=== PATIENT | male | born 1945 | race Caucasian/White ===

== ENCOUNTER → 2017-01-29 | Outpatient (CLI) | payer MEDICARE, BC ==
[2016-01-26 09:15] VITALS: BP 128/68
[~2017-01-29] MED LIST: ADVAIR DISKUS1 DS2 IH; ASPIR LOW81 MG PO; BENADRYL ALLERG25 M2 PO; COMBIVENT RESPI1 SPR IH; FLONASE ALLERG9.9 ML NS; IBU400 MG PO; MULTIVITAMIN1 SGL PO; VITAMIN D50000 UNIT PO; ZANTAC300 MG PO; ZYRTEC ALLERGY10 MG PO
== END ==
LOC: LAB 07:28
DX: I25.10 Atherosclerotic heart disease of native coronary artery without angina pectoris (principal); C61 Malignant neoplasm of prostate; N52.03 Combined arterial insufficiency and corporo-venous occlusive erectile dysfunction; G62.89 Other specified polyneuropathies; E03.4 Atrophy of thyroid (acquired)

== ENCOUNTER → 2017-08-21 | Outpatient (CLI) | payer MEDICARE, BC ==
[2016-01-26 09:15] VITALS: BP 128/68
== END ==
LOC: RAD 06:57
DX: M47.26 Other spondylosis with radiculopathy, lumbar region (principal); M51.16 Intervertebral disc disorders with radiculopathy, lumbar region; M54.89 Other dorsalgia; Z85.46 Personal history of malignant neoplasm of prostate

== ENCOUNTER → 2018-01-28 | Outpatient (CLI) | payer MEDICARE, BC ==
[2016-01-26 09:15] VITALS: BP 128/68
[2018-01-28 06:50] LABS: URINE WBC 0 /hpf (0-3)
[2018-01-28 07:30] LABS: HEMATOCRIT 40.9 % (42.0-52.0); HEMOGLOBIN 13.5 g/dL (13.5-18.0); MEAN CELL VOLUME 92 fl (78-100); MEAN CORPUSCULAR HEMOGLOBIN 30 pg (27-31); MEAN CORPUSCULAR HGB CONC 33 g/dL (33-37); MEAN PLATELET VOLUME 10.4 fl (7.4-10.4); PLATELET COUNT 243 K/mm3 (130-400); RED BLOOD COUNT 4.46 M/mm3 (4.20-5.60); RED CELL DISTRIBUTION WIDTH 13.7 % (11.5-14.5); WHITE BLOOD COUNT 6.1 K/mm3 (4.8-10.8)
[2018-01-28 08:06] LABS: ALBUMIN 4.1 g/dL (3.5-5.0); BUN/CREATININE RATIO 23.4 (6.0-26.0); CALCIUM 9.1 mg/dL (8.4-10.2); POTASSIUM 4.1 mmol/L (3.6-5.0); TOTAL BILIRUBIN 0.4 mg/dL (0.2-1.3); TOTAL PROTEIN 8.1 g/dL (6.3-8.2)
[2018-01-28 09:31] LABS: PH-URINE 6.5 (5.0 - 8.0); URINE APPEARANCE CLEAR; URINE BILIRUBIN NEGATIVE (NEGATIVE); URINE BLOOD NEGATIVE (NEGATIVE); URINE COLOR YELLOW; URINE GLUCOSE NEGATIVE (NEGATIVE); URINE KETONE NEGATIVE (NEGATIVE); URINE LEUKOCYTE ESTERASE NEGATIVE (NEGATIVE); URINE NITRATE NEGATIVE (NEGATIVE); URINE PROTEIN(semi-quant) NEGATIVE (NEGATIVE); URINE UROBILINOGEN NORMAL (NORMAL)
[2018-01-28 10:28] LABS: ERYTHROCYTE SEDIMENTATION RATE 7 mm/hr (0-20); LYMPHOCYTE 22 % (20-51); MONOCYTE 9 % (3-10); NEUTROPHILS 58 % (42-75)
[2018-01-28 22:20] LABS: TESTOSTERONE 548 ng/dL (221-716)
== END ==
LOC: LAB 06:37
PROVIDERS: Internal Medicine
DX: Z12.11 Encounter for screening for malignant neoplasm of colon (principal); C61 Malignant neoplasm of prostate; I25.10 Atherosclerotic heart disease of native coronary artery without angina pectoris; N52.03 Combined arterial insufficiency and corporo-venous occlusive erectile dysfunction; G62.89 Other specified polyneuropathies

== ENCOUNTER → 2018-01-31 | Outpatient (CLI) | payer MEDICARE, BC ==
[2016-01-26 09:15] VITALS: BP 128/68
== END ==
LOC: LAB 10:41
DX: Z12.11 Encounter for screening for malignant neoplasm of colon (principal); G62.89 Other specified polyneuropathies

== ENCOUNTER → 2018-02-07 | Outpatient (CLI) | payer MEDICARE, BC ==
[2016-01-26 09:15] VITALS: BP 128/68
== END ==
LOC: RAD 08:59
DX: M13.851 Other specified arthritis, right hip (principal); D89.2 Hypergammaglobulinemia, unspecified; C61 Malignant neoplasm of prostate

== ENCOUNTER → 2018-03-31 | Outpatient (CLI) | payer MEDICARE, BC ==
[~2018-03-31] VITALS: Ht 190.5 cm; Wt 100.0 kg
[~2018-03-31] MED LIST changes: +FLUTICASON0.05 MG/AC NS; +REVATIO20 MG PO
[2018-03-31 12:26] LABS: EOS # 0.4 (0.04-0.40); HEMATOCRIT 41.6 % (42.0-52.0); HEMOGLOBIN 14.1 g/dL (13.5-18.0); LYMPH# 1.8 (1.50-4.00); MEAN CELL VOLUME 91 fl (78-100); MEAN CORPUSCULAR HEMOGLOBIN 31 pg (27-31); MEAN CORPUSCULAR HGB CONC 34 g/dL (33-37); MONO # 0.6 (0.20-0.80); NEU # 3.4 (1.40-6.50); PLATELET COUNT 256 K/mm3 (130-400); RED BLOOD COUNT 4.56 M/mm3 (4.20-5.60); RED CELL DISTRIBUTION WIDTH 13.1 % (11.5-14.5); WHITE BLOOD COUNT 6.3 K/mm3 (4.8-10.8)
[2018-03-31 12:32] LABS: EOS % 6.2 % (0.0-4.0)
[2018-03-31 12:43] LABS: ALBUMIN 4.3 g/dL (3.5-5.0); CALCIUM 9.5 mg/dL (8.4-10.2); POTASSIUM 4.4 mmol/L (3.6-5.0); TOTAL BILIRUBIN 0.5 mg/dL (0.2-1.3); TOTAL PROTEIN 8.3 g/dL (6.3-8.2)
[2018-03-31 13:00] VITALS: BP 126/72
== END ==
LOC: RAD 12:09
PROVIDERS: Internal Medicine
DX: I49.3 Ventricular premature depolarization (principal); I25.10 Atherosclerotic heart disease of native coronary artery without angina pectoris

== ENCOUNTER → 2018-04-18 | Outpatient (CLI) | payer MEDICARE, BC ==
[2018-03-31 13:00] VITALS: BP 126/72
== END ==
LOC: CARDREHAB 07:41 → CARDLAB 09:54
DX: I25.10 Atherosclerotic heart disease of native coronary artery without angina pectoris (principal); I47.2 Ventricular tachycardia; R06.09 Other forms of dyspnea
CPT/HCPCS: A9500

== ENCOUNTER → 2018-05-12 | Outpatient (CLI) | payer MEDICARE, BC ==
[2018-03-31 13:00] VITALS: BP 126/72
== END ==
LOC: VAS 11:44
DX: I08.1 Rheumatic disorders of both mitral and tricuspid valves (principal); I49.3 Ventricular premature depolarization; R53.83 Other fatigue

== ENCOUNTER → 2018-06-11 | Outpatient (CLI) | payer MEDICARE, BC ==
[2018-03-31 13:00] VITALS: BP 126/72
[2018-06-11 11:34] LABS: POTASSIUM 4.7 mmol/L (3.6-5.0)
== END ==
LOC: LAB 11:09
DX: I25.10 Atherosclerotic heart disease of native coronary artery without angina pectoris (principal); I49.3 Ventricular premature depolarization; I47.1 Supraventricular tachycardia

== ENCOUNTER → 2018-07-31 | Outpatient (CLI) | payer MEDICARE, BC ==
[2018-03-31 13:00] VITALS: BP 126/72
[2018-07-31 15:14] LABS: HEMATOCRIT 40.1 % (42.0-52.0); HEMOGLOBIN 13.3 g/dL (13.5-18.0); MEAN PLATELET VOLUME 10.1 fl (7.4-10.4); RED BLOOD COUNT 4.4 M/mm3 (4.20-5.60); RED CELL DISTRIBUTION WIDTH 13.1 % (11.5-14.5); WHITE BLOOD COUNT 5.9 K/mm3 (4.8-10.8)
[2018-07-31 15:18] LABS: CALCIUM 9.1 mg/dL (8.4-10.2); POTASSIUM 4.4 mmol/L (3.6-5.0)
== END ==
LOC: LAB 14:54
DX: I49.3 Ventricular premature depolarization (principal); Z86.79 Personal history of other diseases of the circulatory system

== ENCOUNTER → 2019-02-24 | Outpatient (CLI) | payer MEDICARE, BC ==
[2018-03-31 13:00] VITALS: BP 126/72
[2019-02-24 07:42] LABS: EOS # 0.4 (0.04-0.40); HEMATOCRIT 40.9 % (42.0-52.0); HEMOGLOBIN 13.5 g/dL (13.5-18.0); LYMPH# 2.1 (1.50-4.00); MEAN CELL VOLUME 92 fl (78-100); MEAN CORPUSCULAR HEMOGLOBIN 30 pg (27-31); MEAN CORPUSCULAR HGB CONC 33 g/dL (33-37); MEAN PLATELET VOLUME 9.6 fl (7.4-10.4); MONO # 0.5 (0.20-0.80); NEU # 2.5 (1.40-6.50); PLATELET COUNT 250 K/mm3 (130-400); RED BLOOD COUNT 4.47 M/mm3 (4.20-5.60); RED CELL DISTRIBUTION WIDTH 13.3 % (11.5-14.5); WHITE BLOOD COUNT 5.6 K/mm3 (4.8-10.8)
[2019-02-24 07:48] LABS: POTASSIUM 4.1 mmol/L (3.5-5.1)
[2019-02-24 07:49] LABS: ALBUMIN 3.9 g/dL (3.4-4.8); CALCIUM 9.1 mg/dL (8.3-10.5)
[2019-02-24 07:51] LABS: TOTAL PROTEIN 8.3 g/dL (6.2-8.1)
[2019-02-24 07:53] LABS: TOTAL BILIRUBIN 0.5 mg/dL (0.2-1.2)
[2019-02-24 08:06] LABS: URINE APPEARANCE CLEAR; URINE BILIRUBIN NEGATIVE (NEGATIVE); URINE BLOOD NEGATIVE (NEGATIVE); URINE COLOR YELLOW; URINE GLUCOSE NEGATIVE (NEGATIVE); URINE KETONE NEGATIVE (NEGATIVE); URINE LEUKOCYTE ESTERASE NEGATIVE (NEGATIVE); URINE NITRATE NEGATIVE (NEGATIVE); URINE PROTEIN(semi-quant) NEGATIVE (NEGATIVE); URINE UROBILINOGEN NORMAL (NORMAL); URINE WBC 0-1 /hpf (0-3)
[2019-02-24 08:46] LABS: ERYTHROCYTE SEDIMENTATION RATE 9 mm/hr (0-20)
[2019-02-24 16:57] LABS: TESTOSTERONE 484 ng/dL (221-716)
== END ==
LOC: LAB 07:17
PROVIDERS: Internal Medicine
DX: Z12.11 Encounter for screening for malignant neoplasm of colon (principal); I25.10 Atherosclerotic heart disease of native coronary artery without angina pectoris; G62.9 Polyneuropathy, unspecified; C61 Malignant neoplasm of prostate; G62.89 Other specified polyneuropathies; N52.9 Male erectile dysfunction, unspecified

== ENCOUNTER → 2020-02-16 | Outpatient (CLI) | payer MEDICARE, OTHER ==
[2018-03-31 13:00] VITALS: BP 126/72
[2020-02-16 09:19] LABS: HEMATOCRIT 40.8 % (42.0-52.0); HEMOGLOBIN 13.4 g/dL (13.5-18.0); MEAN CELL VOLUME 92 fl (78-100); MEAN CORPUSCULAR HEMOGLOBIN 30 pg (27-31); MEAN CORPUSCULAR HGB CONC 33 g/dL (33-37); MEAN PLATELET VOLUME 9.6 fl (7.4-10.4); PLATELET COUNT 253 K/mm3 (130-400); RED BLOOD COUNT 4.44 M/mm3 (4.20-5.60); RED CELL DISTRIBUTION WIDTH 13.7 % (11.5-14.5); WHITE BLOOD COUNT 5.9 K/mm3 (4.8-10.8)
[2020-02-16 09:31] LABS: POTASSIUM 4.3 mmol/L (3.5-5.1)
[2020-02-16 09:33] LABS: TOTAL PROTEIN 7.9 g/dL (6.2-8.1)
[2020-02-16 09:35] LABS: TOTAL BILIRUBIN 0.4 mg/dL (0.2-1.2)
[2020-02-16 09:40] LABS: MAGNESIUM 2.08 mg/dL (1.60-2.60)
[2020-02-16 09:44] LABS: LYMPHOCYTE 42 % (20-51); MONOCYTE 8 % (3-10); NEUTROPHILS 38 % (42-75)
[2020-02-16 10:22] LABS: ERYTHROCYTE SEDIMENTATION RATE 2 mm/hr (0-20)
[2020-02-16 21:49] LABS: TESTOSTERONE 556 ng/dL (221-716)
== END ==
LOC: LAB 09:02
PROVIDERS: Internal Medicine
DX: Z12.11 Encounter for screening for malignant neoplasm of colon (principal); I25.10 Atherosclerotic heart disease of native coronary artery without angina pectoris; D64.9 Anemia, unspecified; C61 Malignant neoplasm of prostate; G62.89 Other specified polyneuropathies; N52.03 Combined arterial insufficiency and corporo-venous occlusive erectile dysfunction

== ENCOUNTER → 2020-10-06 | Outpatient (CLI) | payer MEDICARE, OTHER ==
[2018-03-31 13:00] VITALS: BP 126/72
[2020-10-06 12:46] LABS: EOS # 0.3 (0.04-0.40); HEMATOCRIT 43.9 % (42.0-52.0); HEMOGLOBIN 14.5 g/dL (13.5-18.0); LYMPH# 1.4 (1.50-4.00); MEAN CELL VOLUME 92 fl (78-100); MEAN CORPUSCULAR HEMOGLOBIN 30 pg (27-31); MEAN CORPUSCULAR HGB CONC 33 g/dL (33-37); MONO # 0.5 (0.20-0.80); NEU # 2.7 (1.40-6.50); PLATELET COUNT 261 K/mm3 (130-400); RED BLOOD COUNT 4.77 M/mm3 (4.20-5.60); RED CELL DISTRIBUTION WIDTH 13.3 % (11.5-14.5); WHITE BLOOD COUNT 4.9 K/mm3 (4.8-10.8)
[2020-10-06 12:55] LABS: PROTHROMBIN TIME 9.3 SECONDS (9.0-12.0)
[2020-10-06 12:56] LABS: ALBUMIN 4.3 g/dL (3.4-4.8); POTASSIUM 4.7 mmol/L (3.5-5.1)
[2020-10-06 12:58] LABS: CALCIUM 9.4 mg/dL (8.3-10.5)
[2020-10-06 13:01] LABS: TOTAL BILIRUBIN 0.5 mg/dL (0.2-1.2)
[2020-10-06 13:02] LABS: EOS % 5.7 % (0.0-4.0)
[2020-10-06 13:05] LABS: MAGNESIUM 2.06 mg/dL (1.60-2.60)
[2020-10-06 13:12] LABS: URINE APPEARANCE CLEAR; URINE BILIRUBIN NEGATIVE (NEGATIVE); URINE BLOOD NEGATIVE (NEGATIVE); URINE COLOR YELLOW; URINE GLUCOSE NEGATIVE (NEGATIVE); URINE KETONE NEGATIVE (NEGATIVE); URINE LEUKOCYTE ESTERASE NEGATIVE (NEGATIVE); URINE MUCUS PRESENT (NOT PRESENT); URINE NITRATE NEGATIVE (NEGATIVE); URINE PROTEIN(semi-quant) TRACE mg/dL (NEGATIVE); URINE UROBILINOGEN NORMAL (NORMAL)
== END ==
LOC: AMSURD 12:23
PROVIDERS: Internal Medicine
DX: Z01.818 Encounter for other preprocedural examination (principal); R00.1 Bradycardia, unspecified

== ENCOUNTER → 2021-06-28 | Outpatient (CLI) | payer MEDICARE, OTHER ==
[2021-06-28 07:56] LABS: BASO # 0.02 K/mm3 (0.02-0.10); EOS # 0.37 K/mm3 (0.04-0.40); HEMATOCRIT 42.7 % (42.0-52.0); HEMOGLOBIN 13.9 g/dL (13.5-18.0); LYMPH# 2.55 K/mm3 (1.50-4.00); MEAN CELL VOLUME 95 fl (78-100); MEAN CORPUSCULAR HEMOGLOBIN 31 pg (27-31); MEAN CORPUSCULAR HGB CONC 33 g/dL (33-37); MEAN PLATELET VOLUME 9.3 fl (7.4-10.4); MONO # 0.44 K/mm3 (0.20-0.80); NEU # 2.74 K/mm3 (1.40-6.50); PLATELET COUNT 279 K/mm3 (130-400); RED BLOOD COUNT 4.52 M/mm3 (4.20-5.60); RED CELL DISTRIBUTION WIDTH 12.7 % (11.5-14.5); WHITE BLOOD COUNT 6.1 K/mm3 (4.8-10.8)
[2021-06-28 08:04] LABS: POTASSIUM 4.5 mmol/L (3.5-5.1)
[2021-06-28 08:06] LABS: CALCIUM 9.2 mg/dL (8.3-10.5)
[2021-06-28 08:07] LABS: TOTAL PROTEIN 7.3 g/dL (6.2-8.1)
[2021-06-28 08:09] LABS: TOTAL BILIRUBIN 0.4 mg/dL (0.2-1.2)
[2021-06-28 08:13] LABS: MAGNESIUM 2.13 mg/dL (1.60-2.60)
[2021-06-28 08:54] LABS: ERYTHROCYTE SEDIMENTATION RATE 15 mm/hr (0-20)
== END ==
LOC: LAB 07:35
PROVIDERS: Internal Medicine
DX: C61 Malignant neoplasm of prostate (principal); I25.10 Atherosclerotic heart disease of native coronary artery without angina pectoris; K90.9 Intestinal malabsorption, unspecified

== ENCOUNTER → 2022-08-08 | Outpatient (CLI) | payer MEDICARE, OTHER ==
[2022-08-08 07:52] LABS: BASO # 0.01 K/mm3 (0.02-0.10); EOS % 8.8 % (0.0-4.0); HEMATOCRIT 42.1 % (42.0-52.0); LYMPH# 2.77 K/mm3 (1.50-4.00); MEAN CELL VOLUME 93 fl (78-100); MEAN CORPUSCULAR HEMOGLOBIN 31 pg (27-31); MEAN CORPUSCULAR HGB CONC 33 g/dL (33-37); MEAN PLATELET VOLUME 9.2 fl (7.4-10.4); MONO # 0.41 K/mm3 (0.20-0.80); NEU # 3.02 K/mm3 (1.40-6.50); PLATELET COUNT 237 K/mm3 (130-400); RED BLOOD COUNT 4.52 M/mm3 (4.20-5.60); RED CELL DISTRIBUTION WIDTH 13.1 % (11.5-14.5); WHITE BLOOD COUNT 6.8 K/mm3 (4.8-10.8)
[2022-08-08 07:59] LABS: ALBUMIN 4.1 g/dL (3.4-4.8); POTASSIUM 4.7 mmol/L (3.5-5.1)
[2022-08-08 08:00] LABS: CALCIUM 9.6 mg/dL (8.3-10.5)
[2022-08-08 08:02] LABS: TOTAL PROTEIN 7.8 g/dL (6.2-8.1)
[2022-08-08 08:04] LABS: TOTAL BILIRUBIN 0.6 mg/dL (0.2-1.2)
[2022-08-08 08:08] LABS: MAGNESIUM 2.11 mg/dL (1.60-2.60)
[2022-08-08 09:00] LABS: ERYTHROCYTE SEDIMENTATION RATE 10 mm/hr (0-20)
[2022-08-08 22:06] LABS: TESTOSTERONE 554 ng/dL (221-716)
== END ==
LOC: LAB 07:33
PROVIDERS: Internal Medicine
DX: Z12.11 Encounter for screening for malignant neoplasm of colon (principal); I25.10 Atherosclerotic heart disease of native coronary artery without angina pectoris; C61 Malignant neoplasm of prostate; G62.9 Polyneuropathy, unspecified; J45.909 Unspecified asthma, uncomplicated; K90.9 Intestinal malabsorption, unspecified; F52.21 Male erectile disorder

== ENCOUNTER → 2022-08-13 | Outpatient (CLI) | payer MEDICARE, OTHER | LOC: LAB 09:00 | DX: Z12.11 Encounter for screening for malignant neoplasm of colon (principal); C61 Malignant neoplasm of prostate; J45.909 Unspecified asthma, uncomplicated; I25.10 Atherosclerotic heart disease of native coronary artery without angina pectoris; G62.9 Polyneuropathy, unspecified; K90.9 Intestinal malabsorption, unspecified; F52.21 Male erectile disorder ==

== ENCOUNTER → 2023-07-30 | Outpatient (CLI) | payer MEDICARE, OTHER ==
[2023-07-30 07:06] LABS: BASO # 0.04 K/mm3 (0.02-0.10); EOS # 0.45 K/mm3 (0.04-0.40); EOS % 8.3 % (0.0-4.0); HEMATOCRIT 40.3 % (42.0-52.0); HEMOGLOBIN 13.6 g/dL (13.5-18.0); LYMPH# 2.19 K/mm3 (1.50-4.00); MEAN CELL VOLUME 93 fl (78-100); MEAN CORPUSCULAR HEMOGLOBIN 32 pg (27-31); MEAN CORPUSCULAR HGB CONC 34 g/dL (33-37); MEAN PLATELET VOLUME 9.5 fl (7.4-10.4); MONO # 0.37 K/mm3 (0.20-0.80); PLATELET COUNT 230 K/mm3 (130-400); RED BLOOD COUNT 4.32 M/mm3 (4.20-5.60); RED CELL DISTRIBUTION WIDTH 12.8 % (11.5-14.5); WHITE BLOOD COUNT 5.5 K/mm3 (4.8-10.8)
[2023-07-30 07:12] LABS: ALBUMIN 4.1 g/dL (3.4-4.8)
[2023-07-30 07:13] LABS: CALCIUM 9.5 mg/dL (8.3-10.5)
[2023-07-30 07:14] LABS: TOTAL PROTEIN 7.3 g/dL (6.2-8.1)
[2023-07-30 07:21] LABS: MAGNESIUM 2.2 mg/dL (1.60-2.60)
[2023-07-30 07:30] LABS: TOTAL BILIRUBIN 0.4 mg/dL (0.2-1.2)
[2023-07-30 17:27] LABS: HEPATITIS C VIRUS ANTIBODY Negative (Negative)
== END ==
LOC: LAB 06:49
PROVIDERS: Internal Medicine
DX: Z12.11 Encounter for screening for malignant neoplasm of colon (principal); Z12.5 Encounter for screening for malignant neoplasm of prostate; Z11.59 Encounter for screening for other viral diseases; I25.10 Atherosclerotic heart disease of native coronary artery without angina pectoris; I47.20 Ventricular tachycardia, unspecified; R73.9 Hyperglycemia, unspecified; G62.9 Polyneuropathy, unspecified; G25.81 Restless legs syndrome

== ENCOUNTER → 2023-08-03 | Outpatient (CLI) | payer MEDICARE, OTHER | LOC: LAB 10:06 | DX: Z12.5 Encounter for screening for malignant neoplasm of prostate (principal); Z12.11 Encounter for screening for malignant neoplasm of colon; Z11.59 Encounter for screening for other viral diseases; I47.20 Ventricular tachycardia, unspecified; I25.10 Atherosclerotic heart disease of native coronary artery without angina pectoris; G25.81 Restless legs syndrome; G62.9 Polyneuropathy, unspecified; R73.9 Hyperglycemia, unspecified ==

== ENCOUNTER → 2024-01-07 | Outpatient (CLI) | payer MEDICARE, OTHER ==
[2024-01-07 07:23] LABS: BASO # 0.03 K/mm3 (0.02-0.10); EOS # 0.44 K/mm3 (0.04-0.40); EOS % 7.2 % (0.0-4.0); HEMOGLOBIN 14.1 g/dL (13.5-18.0); LYMPH# 2.91 K/mm3 (1.50-4.00); MEAN CELL VOLUME 92 fl (78-100); MEAN CORPUSCULAR HEMOGLOBIN 31 pg (27-31); MEAN CORPUSCULAR HGB CONC 34 g/dL (33-37); MEAN PLATELET VOLUME 9.5 fl (7.4-10.4); MONO # 0.41 K/mm3 (0.20-0.80); NEU # 2.28 K/mm3 (1.40-6.50); PLATELET COUNT 224 K/mm3 (130-400); RED BLOOD COUNT 4.55 M/mm3 (4.20-5.60); RED CELL DISTRIBUTION WIDTH 12.9 % (11.5-14.5); WHITE BLOOD COUNT 6.1 K/mm3 (4.8-10.8)
[2024-01-07 07:35] LABS: CALCIUM 9.2 mg/dL (8.3-10.5)
[2024-01-07 07:37] LABS: TOTAL PROTEIN 7.1 g/dL (6.2-8.1)
[2024-01-07 07:38] LABS: TOTAL BILIRUBIN 0.6 mg/dL (0.2-1.2)
[2024-01-07 07:43] LABS: MAGNESIUM 2.22 mg/dL (1.60-2.60)
== END ==
LOC: LAB 07:06
PROVIDERS: Internal Medicine
DX: I48.0 Paroxysmal atrial fibrillation (principal); K90.9 Intestinal malabsorption, unspecified

== ENCOUNTER → 2024-01-23 | Outpatient (CLI) | payer MEDICARE, OTHER | LOC: LAB 07:02 | DX: E78.5 Hyperlipidemia, unspecified (principal) ==

== ENCOUNTER → 2024-06-23 | Outpatient (CLI) | payer MEDICARE, OTHER ==
[2024-06-23 09:51] LABS: URINE WBC 0 /hpf (0-3)
[2024-06-23 10:04] LABS: BASO # 0.02 K/mm3 (0.02-0.10); EOS # 0.36 K/mm3 (0.04-0.40); EOS % 6.6 % (0.0-4.0); HEMATOCRIT 39.8 % (42.0-52.0); HEMOGLOBIN 14.3 g/dL (13.5-18.0); LYMPH# 2.12 K/mm3 (1.50-4.00); MEAN CELL VOLUME 95 fl (78-100); MEAN CORPUSCULAR HEMOGLOBIN 34 pg (27-31); MEAN CORPUSCULAR HGB CONC 36 g/dL (33-37); MEAN PLATELET VOLUME 9.4 fl (7.4-10.4); MONO # 0.38 K/mm3 (0.20-0.80); NEU # 2.58 K/mm3 (1.40-6.50); PLATELET COUNT 205 K/mm3 (130-400); RED BLOOD COUNT 4.17 M/mm3 (4.20-5.60); RED CELL DISTRIBUTION WIDTH 12.8 % (11.5-14.5); WHITE BLOOD COUNT 5.5 K/mm3 (4.8-10.8)
[2024-06-23 10:15] LABS: ALBUMIN 4.2 g/dL (3.4-4.8)
[2024-06-23 10:16] LABS: CALCIUM 9.5 mg/dL (8.3-10.5); PROTHROMBIN TIME 9.8 SECONDS (9.0-12.0)
[2024-06-23 10:17] LABS: TOTAL PROTEIN 7.7 g/dL (6.2-8.1)
[2024-06-23 10:19] LABS: TOTAL BILIRUBIN 0.6 mg/dL (0.2-1.2)
[2024-06-23 10:21] LABS: PH-URINE 6.5 (5.0 - 8.0); URINE APPEARANCE CLEAR (CLEAR); URINE BILIRUBIN NEGATIVE (NEGATIVE); URINE BLOOD NEGATIVE (NEGATIVE); URINE COLOR YELLOW (YELLOW); URINE GLUCOSE NEGATIVE (NEGATIVE); URINE KETONE NEGATIVE (NEGATIVE); URINE LEUKOCYTE ESTERASE NEGATIVE (NEGATIVE); URINE NITRATE NEGATIVE (NEGATIVE); URINE PROTEIN(semi-quant) NEGATIVE (NEGATIVE)
[2024-06-23 10:25] LABS: MAGNESIUM 2.15 mg/dL (1.60-2.60)
== END ==
LOC: LAB 09:22
PROVIDERS: Internal Medicine
DX: Z01.812 Encounter for preprocedural laboratory examination (principal); I25.10 Atherosclerotic heart disease of native coronary artery without angina pectoris; K90.9 Intestinal malabsorption, unspecified

== ENCOUNTER → 2024-09-03 | Outpatient (CLI) | payer MEDICARE, OTHER | LOC: LAB 07:26 | DX: I25.10 Atherosclerotic heart disease of native coronary artery without angina pectoris (principal) ==

== ENCOUNTER → 2024-10-19 | Outpatient (CLI) | payer MEDICARE, OTHER | LOC: LAB 08:09 | DX: E83.10 Disorder of iron metabolism, unspecified (principal); G47.61 Periodic limb movement disorder ==